=== PATIENT | male | born 1945 | race Caucasian/White ===

== ENCOUNTER 2020-03-05 10:51 | Day surgery (SDC) | payer MEDICARE ==
[~2020-03-05] VITALS: Ht 182.9 cm; Wt 63.6 kg
[2020-03-05] MEDS ORDERED: LIDOCAINE 1%-EPI 1:100K, 20ML SQ PRN (11:30)
[2020-03-05] MEDS ORDERED: PLEASE ENTER ALLERGIES MC SCH (12:00)
[2020-03-05] MEDS ORDERED: LIDOCAINE 2%, 20ML ONE (12:18)
== END 2020-03-05 14:18 | disposition home or self-care (01) ==
LOC: CACL 10:51
PROVIDERS: ATTEND Internal Medicine Cardiovascular Disease
DX: I63.9 Cerebral infarction, unspecified (principal); I48.91 Unspecified atrial fibrillation; I49.3 Ventricular premature depolarization; I35.1 Nonrheumatic aortic (valve) insufficiency; I71.2 Thoracic aortic aneurysm, without rupture; Z79.82 Long term (current) use of aspirin; Z79.890 Hormone replacement therapy; Z79.899 Other long term (current) drug therapy; Z82.49 Family history of ischemic heart disease and other diseases of the circulatory system; Z83.3 Family history of diabetes mellitus
CPT/HCPCS: 33285; C1764